=== PATIENT | female | born 1995 | race Two or more races ===

== ENCOUNTER 2023-01-12 07:52 | Emergency (ER) | payer OTHER ==
[~2023-01-12] VITALS: Ht 152.4 cm; Wt 62.1 kg
[2023-01-12] MEDS ORDERED: ABSORICA40 MG PO (08:01)
== END 2023-01-12 12:07 | disposition home or self-care (01) ==
LOC: ER 07:52
DX: K29.60 Other gastritis without bleeding (principal); R10.9 Unspecified abdominal pain

== ENCOUNTER 2023-12-05 15:07 | Emergency (ER) | payer OTHER ==
[~2023-12-05] VITALS: Ht 154.9 cm; Wt 60.8 kg
[~2023-12-05 15:07] MED LIST: ABSORICA40 MG PO
== END 2023-12-05 18:26 | disposition home or self-care (01) ==
LOC: ER 15:08
DX: J03.80 Acute tonsillitis due to other specified organisms (principal)

== ENCOUNTER 2024-04-05 06:36 | Emergency (ER) | payer OTHER ==
[~2024-04-05] VITALS: Ht 160 cm; Wt 66.2 kg
== END 2024-04-05 08:46 | disposition home or self-care (01) ==
LOC: ER 06:37
DX: K29.70 Gastritis, unspecified, without bleeding (principal); B96.81 Helicobacter pylori [H. pylori] as the cause of diseases classified elsewhere